=== PATIENT | female | born 1935 | race Caucasian/White ===

== ENCOUNTER 2019-02-19 15:45 | Inpatient (IN) | payer OTHER, BC ==
--- NOTE | 2019-02-19 16:09 | PDOC ---
History of Present Illness - General History Source: Family Exam Limitations: No Limitations - History of Present Illness Initial Comments: 02/19/19 17:09 The patient is a 83-year-old female, with a past medical history of HTN and alzheimer's, who presents to the ED with new onset weakness. Family is at bedside and states that the patient was sitting on the couch and attempted to stand up, but suddenly became weak. Family was able to catch the patient before she fell and she just slid down the couch. EMS was called. No LOC or head trauma. Upon examination, the patient denies any back pain, neck pain, abdominal pain, chest pain, or shortness of breath. Patient experienced 1 episode of vomiting today after drinking ensure. Denies any fevers, chills. Denies any urinary symptoms. <Miladis Armstrong - Last Filed: 02/19/19 17:11> - History of Present Illness Initial Comments: Daily Meds: Lisinopril 5 mg- qd Baby aspirin- qd Omeprazole 20mg- qd Metoprolol succinate 25mg- qd 02/19/19 17:54 <Tamia Blanchard - Last Filed: 02/19/19 19:15> <Kathy Hale - Last Filed: 02/19/19 20:15> - General Chief Complaint: Injury Stated Complaint: FALL Time Seen by Provider: 02/19/19 16:06 Past History <Miladis Armstrong - Last Filed: 02/19/19 17:11> <Tamia Blanchard - Last Filed: 02/19/19 19:15> - Past Medical History Cardiac Disorders: Yes COPD: No GI Disorders: Yes - Suicide/Smoking/Psychosocial Hx Smoking History: Never smoked Information on smoking cessation initiated: No Hx Alcohol Use: No Drug/Substance Use Hx: No <Kathy Hale - Last Filed: 02/19/19 20:15> - Past Medical History Allergies/Adverse Reactions: Allergies Allergy/AdvReac Type Severity Reaction Status Date / Time No Known Allergies Allergy Verified 02/19/19 15:56 Home Medications: Ambulatory Orders Unobtainable 02/19/19 Review of Systems - Review of Systems Able to Perform ROS?: Yes Comments:: 02/19/19 17:17 GENERAL/CONSTITUTIONAL: (+)Generalized weakness. No fever or chills. HEAD, EYES, EARS, NOSE AND THROAT: No change in vision. No ear pain or discharge. No sore throat. CARDIOVASCULAR: No chest pain or shortness of breath. RESPIRATORY: No cough, wheezing, or hemoptysis. GASTROINTESTINAL: No nausea, vomiting, diarrhea or constipation. GENITOURINARY: No dysuria, frequency, or change in urination. MUSCULOSKELETAL: No joint or muscle swelling or pain. No neck or back pain. SKIN: No rash NEUROLOGIC: No headache, vertigo, loss of consciousness, or change in strength/ sensation. ENDOCRINE: No increased thirst. No abnormal weight change. HEMATOLOGIC/LYMPHATIC: No anemia, easy bleeding, or history of blood clots. ALLERGIC/IMMUNOLOGIC: No hives or skin allergy. <Miladis Armstrong - Last Filed: 02/19/19 17:11> *Physical Exam - Vital Signs Last Vital Signs Temp Pulse Resp BP Pulse Ox 97.5 F L 112 H 17 148/72 94 L 02/19/19 15:54 02/19/19 15:54 02/19/19 15:54 02/19/19 15:54 02/19/19 15:54 - Physical Exam Comments: 02/19/19 17:17 GENERAL: Awake, alert, and fully oriented, in no acute distress HEAD: No signs of trauma EYES: PERRLA, EOMI, sclera anicteric, conjunctiva clear ENT: Auricles normal inspection, hearing grossly normal, nares patent, oropharynx clear without exudates. Moist mucosa NECK: Normal ROM, supple, no lymphadenopathy, JVD, or masses LUNGS: (+)Wheezing B/L, crackles heard on the right. HEART: Regular rate and rhythm, normal S1 and S2, no murmurs, rubs or gallops ABDOMEN: Soft, nontender, normoactive bowel sounds. No guarding, no rebound. No masses MSK: No C, T, or L-spine tenderness. EXTREMITIES: (+)B/L LE venous stasis changes. Radial and pedal pulses intact. No external deformities. Normal range of motion, no edema. No clubbing or cyanosis. No cords, erythema, or tenderness NEUROLOGICAL: Cranial nerves II through XII grossly intact. Normal speech. SKIN: Warm, Dry, normal turgor, no rashes or lesions noted <Miladis Armstrong - Last Filed: 02/19/19 17:11> - Vital Signs Last Vital Signs Temp Pulse Resp BP Pulse Ox 97.5 F L 112 H 17 148/72 94 L 02/19/19 15:54 02/19/19 15:54 02/19/19 15:54 02/19/19 15:54 02/19/19 15:54 <Tamia Blanchard - Last Filed: 02/19/19 19:15> - Vital Signs Last Vital Signs Temp Pulse Resp BP Pulse Ox 97.5 F L 112 H 17 148/72 94 L 02/19/19 15:54 02/19/19 15:54 02/19/19 15:54 02/19/19 15:54 02/19/19 15:54 <Kathy Hale - Last Filed: 02/19/19 20:15> Heart Score/ECG Review - ECG Intrepretation Comment:: 02/19/19 17:33 sinus at 98, nl axis, nl interval, t wave inversions v1-2, t wave flattening I/ avl, no acute st changes <Kathy Hale - Last Filed: 02/19/19 20:15> ED Treatment Course - LABORATORY CBC & Chemistry Diagram: 02/19/19 16:45 02/19/19 16:45 <Miladis Armstrong - Last Filed: 02/19/19 17:11> - LABORATORY CBC & Chemistry Diagram: 02/19/19 16:45 02/19/19 16:45 - ADDITIONAL ORDERS Additional order review: Laboratory Results 02/19/19 02/19/19 16:45 16:45 PT with INR 18.90 H INR 1.59 H PTT (Actin FS) 39.0 H Sodium 142 Potassium 3.0 L Chloride 105 Carbon Dioxide 28 Anion Gap 9 BUN 9 Creatinine 1.0 Creat Clearance w eGFR 52.82 Random Glucose 113 H Calcium 7.5 L Magnesium 1.6 L Total Bilirubin 0.8 AST 119 H ALT 36 Alkaline Phosphatase 80 Creatine Kinase 752 H Troponin I 0.60 H Total Protein 5.9 L Albumin 2.5 L TSH 2.28 02/19/19 16:45 RBC 4.26 MCV 68.6 L MCHC 31.3 L RDW 19.1 H MPV 9.6 Neutrophils % 73.1 Lymphocytes % 16.8 Monocytes % 9.9 Eosinophils % 0.0 Basophils % 0.2 - RADIOLOGY Radiograph Interpretation: EXAM#: TYPE/EXAM: RESULT: [id number] RAD/CHEST PA LAT History of cough Impression: Moderate size hiatus hernia that was seen on prior MRI of the abdomen dated 09/06/2018. Adjacent consolidation/atelectasis is present in the left lower lobe, medially. Reported By: Viktoria Rivera MD 02/19/19 17:51 EXAM#: TYPE/EXAM: RESULT: [id number] CT/HEAD CT WITHOUT CONTRAST Headache. Impression: Moderate atrophy. Focal chronic infarct in the left basal ganglia, anteriorly extending to the left anterior periventricular white matter. Otherwise, no gross acute intracranial pathology is identified. Reported By: Viktoria Rivera MD 02/19/19 18:38 02/19/19 19:15 - Consult/PCP Time Called: 17:41 (Spoke with Dr. Pollack concerning patient's care, patient will be admitted to obs) Case discussed with personal care physician: Robbin Pollack <Tamia Blanchard - Last Filed: 02/19/19 19:15> - LABORATORY CBC & Chemistry Diagram: 02/19/19 16:45 02/19/19 16:45 <Kathy Hale - Last Filed: 02/19/19 20:15> Medical Decision Making - Medical Decision Making 02/19/19 16:45 a/p: 83yo female with a slip off the couch today, daughter lowered her to the floor. No head injury or LOC -new generalized weakness -denies all complaints, but has wheezing which is new and LE edema which is new -Dr. Robbin Pollack is PMD -ambuates with a steady gait at home and usually is not weak when getting up -odor of urine -denies cough, denies sob, denies cp -no root -denies blood thinners -no neck or back pain -pt in NAD -an episode of vomiting in the ambulance, states she had drunk an ensure just prior to getting in the ambulance and the bouncing in the back of the ambulance pt denies n/v or abd pain 02/19/19 17:37 cxr shows a density in the RML - will obtain ct chest without contrast trop 0.[address] changes on ekg t wave inversions septal leads call placed to Dr. Pollack for admission 02/19/19 18:01 daughter and pt updated meds obtained from the pharmacy 02/19/19 19:47 Bryce Genao- son, please call with updates 02/19/19 20:[address], will send blood cultures and add abx bnp elevated will give dose of lasix, given le swelling and pleural effusions <Kathy Hale - Last Filed: 02/19/19 20:15> *DC/Admit/Observation/Transfer - Attestations Scribe Attestion: 02/19/19 17:23 Documentation prepared by Miladis Armstrong, acting as caregivers non medical for Kathy Hale DO. <Miladis Armstrong - Last Filed: 02/19/19 17:11> - Attestations Scribe Attestion: Documentation prepared by FABIANO Purvis, acting as caregivers non medical for Kathy Hale DO. 02/19/19 17:43 <Tamia Blanchard - Last Filed: 02/19/19 19:15> - Discharge Dispostion Decision to Admit order: Yes - Attestations Physician Attestion: 02/19/19 17:39 I, Dr. Kathy Hale DO, attest that this document has been prepared under my direction and personally reviewed by me in its entirety. I further attest, that it accurately reflects all work, treatment, procedures and medical decision -making performed by me. <Kathy Hale - Last Filed: 02/19/19 20:15> Diagnosis at time of Disposition: Weakness, Elevated troponin, Microcytic anemia, PNA (pneumonia) - Discharge Dispostion Condition at time of disposition: Guarded
[2019-02-19 17:11] LABS: BASO % 0.2 % (0-2.0); HEMATOCRIT 29.2 % (32.4-45.2); HEMOGLOBIN 9.2 GM/dL (10.7-15.3); LYMPH % 16.8 % (8-40); MCH 21.5 pg (25.7-33.7); MCHC 31.3 g/dl (32.0-36.0); MEAN CELL VOLUME 68.6 fl (80-96); MEAN PLT VOLUME 9.6 fl (7.5-11.1); MONO % 9.9 % (3.8-10.2); NEUT % 73.1 % (42.8-82.8); PLATELET COUNT 102 K/MM3 (134-434); RBC 4.26 M/mm3 (3.60-5.2); RDW 19.1 % (11.6-15.6); WHITE BLOOD COUNT 4.4 K/mm3 (4.0-10.0)
[2019-02-19 17:16] LABS: INR 1.59 (0.83-1.09); PROTHROMBIN TIME (PATIENT) 18.9 SEC (9.7-13.0)
[2019-02-19 17:35] LABS: ALBUMIN 2.5 g/dl (3.4-5.0); ALK PHOS 80 U/L (45-117); ANION GAP 9 MMOL/L (8-16); BILIRUBIN,TOTAL 0.8 mg/dL (0.2-1); BLOOD UREA NITROGEN 9 mg/dL (7-18); CALCIUM 7.5 mg/dL (8.5-10.1); CHLORIDE 105 mmol/L (98-107); CO2 28 mmol/L (21-32); GLUCOSE,RANDOM 113 mg/dL (74-106); MAGNESIUM 1.6 mg/dL (1.8-2.4); SGOT/AST 119 U/L (15-37); SGPT/ALT 36 U/L (13-61); SODIUM 142 mmol/L (136-145); TOT PROT 5.9 g/dl (6.4-8.2)
[2019-02-19] MEDS ORDERED: POTASSIUM CHLORIDE ORAL LIQUID 20 MEQ/15 ML PO ONE (17:36)
[2019-02-19] MEDS ORDERED: MAGNESIUM SULF 50% (8.12 MEQ/2 ML-1 GM VIAL) IVPB ONE (17:36)
[2019-02-19] MEDS ORDERED: ASPIRIN 81 MG CHEWABLE TABLETS PO ONE (17:42)
[2019-02-19] MEDS ORDERED: ASPIRIN 81 MG CHEWABLE TABLETS ONE (18:21)
[2019-02-19] MEDS ORDERED: POTASSIUM CHLORIDE ORAL LIQUID 20 MEQ/15 ML ONE (18:22)
[2019-02-19] MEDS ORDERED: MAGNESIUM 1GM/D5W - 1 GM/100 ML IVPB IVPB ONE (18:22)
[2019-02-19 19:41] LABS: URINE APPEARANCE Slightly Cloudy; URINE BILIRUBIN Negative (NEGATIVE); URINE COLOR Yellow; URINE GLUCOSE (UA) Negative (NEGATIVE); URINE KETONE Negative (NEGATIVE); URINE LEUK ESTERASE 1+ (NEGATIVE); URINE NITRITE Negative (NEGATIVE); URINE PROTEIN 1+ (NEGATIVE)
[2019-02-19 19:42] LABS: ANISOCYTOSIS 1+; PLATELET ESTIMATE SLT DECREASE
[2019-02-19] MEDS ORDERED: CEFTRIAXONE 1 GM in DEXTROSE 5%-WATER - 100 ML IVPB ONE (20:10)
[2019-02-19] MEDS ORDERED: AZITHROMYCIN IVPB 500 MG in DEXTROSE 5%-WATER - 250 ML IVPB ONE (20:10)
[2019-02-19] MEDS ORDERED: FUROSEMIDE 40 MG/4 ML INJECTABLE VIAL IVPUSH ONE (20:15)
[2019-02-19] MEDS ORDERED: FUROSEMIDE 40 MG/4 ML INJECTABLE VIAL ONE (20:22)
[2019-02-19] MEDS ORDERED: CEFTRIAXONE 1 GM/50 ML BAG ONE (20:22)
[2019-02-19 20:32] LABS: URINE BACTERIA MANY /hpf (NEGATIVE)
[2019-02-19] MEDS ORDERED: PHYTONADIONE 5 MG TABLET PO ONE (20:38)
[2019-02-19] MEDS ORDERED: FUROSEMIDE 40 MG TABLET (FP) PO ONE (20:38)
[2019-02-19] MEDS ORDERED: KCL 10 MEQ IVPB 10 MEQ/100 ML INFUS.BAG IVPB SCH (20:45)
[2019-02-19] MEDS ORDERED: NITROGLYCERIN SUBLINGUAL 1/150 0.4 MG TAB SL PRN (20:50)
[2019-02-20] MEDS: HEPARIN NA (PORCINE) 5,000 UNITS/ML 1ML VIAL SQ SCH ×2 (01:13→05:41)
[2019-02-20 04:41] VITALS: BMI 22.9
[2019-02-20 06:50] LABS: HEMATOCRIT 24.9 % (32.4-45.2); HEMOGLOBIN 7.7 GM/dL (10.7-15.3); MCH 20.8 pg (25.7-33.7); MCHC 30.8 g/dl (32.0-36.0); MEAN CELL VOLUME 67.5 fl (80-96); MEAN PLT VOLUME 9.3 fl (7.5-11.1); PLATELET COUNT 82 K/MM3 (134-434); RBC 3.68 M/mm3 (3.60-5.2); RDW 18.8 % (11.6-15.6); WHITE BLOOD COUNT 3.7 K/mm3 (4.0-10.0)
[2019-02-20 06:58] LABS: INR 1.61 (0.83-1.09); PROTHROMBIN TIME (PATIENT) 19.1 SEC (9.7-13.0)
[2019-02-20 07:39] LABS: ALK PHOS 62 U/L (45-117); ANION GAP 7 MMOL/L (8-16); BILIRUBIN,TOTAL 0.8 mg/dL (0.2-1); BLOOD UREA NITROGEN 9 mg/dL (7-18); CHLORIDE 103 mmol/L (98-107); CO2 32 mmol/L (21-32); CREATININE 0.9 mg/dL (0.55-1.3); GLUCOSE,RANDOM 75 mg/dL (74-106); MAGNESIUM 1.4 mg/dL (1.8-2.4); SGOT/AST 96 U/L (15-37); SGPT/ALT 31 U/L (13-61); SODIUM 142 mmol/L (136-145); TOT PROT 4.8 g/dl (6.4-8.2)
[2019-02-20 07:54] LABS: CALCIUM 6.8 mg/dL (8.5-10.1); POTASSIUM 2.7 mmol/L (3.5-5.1)
[2019-02-20] MEDS ORDERED: PHYTONADIONE 5 MG TABLET PO ONE (08:50)
[2019-02-20] MEDS ORDERED: LISINOPRIL 5 MG TABLET (FP) PO SCH (10:00)
[2019-02-20] MEDS ORDERED: KETOCONAZOLE 2% CREAM - 60GM TUBE TP SCH (10:00)
[2019-02-20] MEDS ORDERED: ASPIRIN COATED 81 MG TABLET.EC PO SCH (10:00)
[2019-02-20] MEDS ORDERED: PT OWN MED DRAWER 7, Y5N ONE (10:03)
--- NOTE | 2019-02-20 10:08 | CONSULT ---
Admitting History and Physical - Primary Care Physician PCP: Robbin Pollack - Admission History of Present Illness: The patient is a 83-year-old female, with a past medical history of HTN and alzheimer's, who presents to the ED with new onset weakness. Pt had an episode of vomiting in the ambulance. She reported having an ensure just prior to getting in the ambulance and the bouncing in the back of the ambulance History Source: Medical Record Limitations to Obtaining History: Clinical Condition, Dementia - Smoking History Smoking history: Never smoked - Alcohol/Substance Use Hx Alcohol Use: No History - Admission Reason For Visit: ELAVATED TROPONIN LEVEL,MICROCYTIC ANEMIA,WEAKNESS - Diagnostics X-ray: Report Reviewed (Moderate size hiatus hernia that was seen on prior MRI of the abdomen dated 09/06/2018. Adjacent consolidation/atelectasis is present in the left lower lobe, medially) CT Scan: Report Reviewed (Moderate atrophy. Focal chronic infarct in the left basal ganglia, anteriorly extending to the left anterior periventricular white matter. Otherwise, no gross acute intracranial pathology is identified.) - General Mental Status: Awake and Alert, Able to Follow Commands, Forgetful, Vague, Confused Attention: Intact Ability to Follow Directions: Good Head/Neck Control: Fair - Hearing Hearing: Normal Hearing Aide: No Speech Evaluation - Communication Primary Language: [place] Communication: Yes: Simple Responses - Speech Production Able to Make Needs Known: Yes: WNL Intelligibility: Yes: WNL - Speech Characteristics Voice Loudness: Normal Voice Pitch: Yes: Normal Voice Phonatory-based Quality: Yes: Normal Speech Pattern: Normal Speech Clarity: < 100% Nasal Resonance: Normal Articulation: Yes: Precise - Language/Auditory Comprehension Follows: Yes: 1 Stage Simple Commands Observation: Able to respond to yes/no queries: Yes, Yes/No Confusion: No, Comprehends Conversational Speech: Yes, Benefits from Slow Speech: Yes, Benefits from Repetiton: Yes - Language/Verbal Expression Able to Respond to Simple Queries: Yes: WNL, Mildly Impaired Able to Communicate Wants and Needs: Yes: WNL Functional Communication Status: Yes: WNL - Swallow Evaluation/Bedside Assessment Current Nutritional Intake: Regular, Thin Liquids Oral Secretions: Yes: WFL Dentition: Yes: Dental Appliance Upper (loose,ill fitting), Dental Appliance Lower (non functional) Facial Symmetry at Rest: Symmetrical Facial Symmetry on Retraction: Symmetrical Facial Movement: Controlled Against Resistance Opening: Normal Against Resistance Closing: Normal Pucker Lips: Normal Smile: Normal Lingual Movement: Normal, Symmetric Lingual Speed of Movement: Normal Lingual Movement Strgth Against Opposition: Normal Lingual Movement Characteristics: Normal Velopharyngeal Movement: Normal Laryngeal Elevation: WFL Laryngeal Movement: Able to Palpate Rate of Intake: WFL Bolus Size: WFL Labial Seal: WFL Chewing: Impaired Oral Prep Time: Increased A-P Transit: WFL Timing of Swallow: Delayed Coughing/Throat Clear: No Change in Voice: No Recommendations - Speech Evaluation, Impression/Plan Impression: Pt seen bedside, hesitant but verbal, disoriented x 3, reports needing to "cut up small or it gets stuck.". Upper dentures are loose. Lower dentures in a cup are non functional with hooks to attach to teeth that no longer exist in her mouth. - Disposition Discharge to: To be Determined - Dysphagia Impressions/Plan Swallowing Skills: Impaired (Impaired mastication/HH) Dysphagia Treatment Plan: Elevate HOB during feed (during and after meals x 1 hours. Avoid PO intake within 2-3 hours of bedtime) - Recommendations Diet Consistency: Other (Chopped, moist,soft, easy to chew) Medication Administration: Crushed with applesauce Liquids: Thin Liquids Supplement: Ensure, Magic Cup
[2019-02-20] MEDS: metoPROLOL SUCCINATE 25 MG TAB.SR.24H (FP) PO SCH (10:20)
[2019-02-20] MEDS: KCL 10 MEQ IVPB 10 MEQ/100 ML INFUS.BAG IVPB SCH ×2 (10:20→11:20)
[2019-02-20] MEDS: PANTOPRAZOLE 40 MG TABLET (FP) PO SCH (10:20)
[2019-02-20] MEDS: LISINOPRIL 5 MG TABLET (FP) PO SCH (10:20)
--- NOTE | 2019-02-20 10:22 | EKG ---
Test Reason : Blood Pressure : / mmHG Vent. Rate : 087 BPM Atrial Rate : 087 BPM P-R Int : 150 ms QRS Dur : 068 ms QT Int : 390 ms P-R-T Axes : 081 -48 095 degrees QTc Int : 469 ms SINUS RHYTHM WITH PREMATURE SUPRAVENTRICULAR COMPLEXES AND WITH OCCASIONAL PREMATURE VENTRICULAR COMPLEXES LEFT AXIS DEVIATION NONSPECIFIC T WAVE ABNORMALITY ABNORMAL ECG NO PREVIOUS ECGS AVAILABLE Confirmed by FABIOLA REDMAN, AIDAN ([id number]) on 02/20/2019 10:22:15 AM Referred By: Confirmed By:AIDAN HICKS MD
--- NOTE | 2019-02-20 10:25 | EKG ---
Test Reason : Blood Pressure : / mmHG Vent. Rate : 098 BPM Atrial Rate : 098 BPM P-R Int : 154 ms QRS Dur : 070 ms QT Int : 376 ms P-R-T Axes : 073 -25 091 degrees QTc Int : 480 ms NORMAL SINUS RHYTHM NONSPECIFIC T WAVE ABNORMALITY PROLONGED QT ABNORMAL ECG NO PREVIOUS ECGS AVAILABLE Confirmed by AIDAN HICKS MD ([id number]) on 02/20/2019 10:24:41 AM Referred By: Confirmed By:AIDAN HICKS MD
--- NOTE | 2019-02-20 12:18 | CONSULT ---
Consult - text type - Consultation Consultation Note: NEUROLOGY CONSULT APPRECIATED: This 83 yo F lives alone with assistance of her daughters. Daughter Lana at bedside. PMHX includes HTN, GERD, "Alzheimer's," maintained on lisinopril, ASA, omeprazole, metoprolol ER 25mg. Ambulates independently at home. Admitted after sliding on her bottom while attempting to stand from couch and lowered by her daughter to floor without reported ZAFAR/LOC. Pt is vague historian unable to recount events. Noted with low H/H, requiring transfusion today. Per daughter, pt is continent of B/B without previous hx of falls. Head CT (reviewed): moderate atrophy with ventricular dilation. chronic periventricular ischemic changes. Chronic L basal ganglia CVA with encephalomalacia. WBC 3.7 H/H 7.7./24.9 MCV 67.5 platelet 82; B12> 1000 pg% UA WBC= 10-20- now on amoxicillin TSH 2.28 FLAKO: T 99.6. Cor regular. No bruit. Neck supple. S/P mid-sternotomy scar. Wheezing. No evidence of head trauma. NEURO: Awake, alert, difficulty following 2 step commands. Oriented to self. Ox "vaughn," "[place]." CNII-CNXII: EOM intact with full covarrubias appreciated. No facial. + glabella, snout, grasps Motor: Min R drift. Strength normal. Decreased GANESH's. Reflexes symmetric. Toes downgoing. Coordination: No FTN dystaxia. Sensation: Feels pinch in all 4's Gait: Shortened strides, retropulsive. Impression: Moderately severe B/L cerebral dysfunction (OMS, chronic) mosyt likely Alzheimer's Disease (AD). Accentuation of L cerebral dysfunction (Chronic L basal ganglia lacunae) Gait ataxia with contributions from above, anemia, orthostatic changes All worsened byToxic-Metabolic Encephalopathy (UTI +/- PNA?) Suggest: Hydration and antibiotics as indicated Orthostatic BP's Agree with Cardiology and telemetry Await carotid duplex Start donepezil 5 mg PO qd Monitor H/H and underlying cause of pancytopenia PT eval for gait safety with walker teles[employer] representative referral for HHS and home safety Thank you very much, Jose El MD
--- NOTE | 2019-02-20 13:00 | ECHO ---
Name: WARRENZARINA Exam:Adult Echocardiogram Study Date: 02/20/2019 09:34 AM Age: 83 yrs Reason For Study: ELEVATED BNP Height: 60 in Weight: 110 lb BSA: 1.4 m2 MMode/2D Measurements & Calculations IVSd: 0.82 cm Ao root diam: 2.8 cm LVIDd: 3.5 cm LA dimension: 1.9 cm LVIDs: 2.4 cm LVPWd: 0.88 cm LVPWs: 1.9 cm EDV(Suleimanich): 50.6 ml ESV(Teich): 19.3 ml LAV (MOD-bp): 68.0 ml Doppler Measurements & Calculations MV E max abraham: 79.0 cm/sec Ao V2 max: 143.5 cm/sec MV A max abrahma: 108.1 cm/sec Ao max P.2 mmHg MV E/A: 0.73 Ao V2 mean: 99.5 cm/sec MV dec time: 0.21 sec Ao mean P.6 mmHg Ao V2 VTI: 29.3 cm LV V1 max P.6 mmHg MR max abraham: 508.7 cm/sec LV V1 mean P.4 mmHg MR max P.5 mmHg LV V1 max: 80.0 cm/sec LV V1 mean: 54.8 cm/sec LV V1 VTI: 15.0 cm TR max abraham: 203.3 cm/sec PA V2 max: 98.7 cm/sec TR max P.5 mmHg PA max P.9 mmHg Med Peak E' Abraham: 6.3 cm/sec Med E/e': 12.6 Lat Peak E' Abraham: 8.0 cm/sec Lat E/e': 9.9 Procedure A two-dimensional transthoracic echocardiogram with color flow and Doppler was performed. Left Ventricle The left ventricular size, thickness and function are normal. The left ventricular ejection fraction is normal. E/A reversal consistent with but not diagnostic of poor LV compliance. The left ventricular w all motion is normal. Right Ventricle The right ventricle is normal in size and function. Atria Normal left and right atrial size and function. Mitral Valve There is mild mitral valve thickening. There is no mitral valve stenosis. There is moderate to severe mitral regurgitation. Tricuspid Valve There is mild tricuspid valve thickening. There is no tricuspid stenosis. There was insufficient TR d etected to calculate RV systolic pressure. Aortic Valve The aortic valve is normal in structure and function. No hemodynamically significant valvular aortic stenosis. No aortic regurgitation is present. Pulmonic Valve The pulmonic valve is not well visualized. There is no pulmonic valvular stenosis. Mild pulmonic valv ular regurgitation. Great Vessels The aortic root is normal size. Pericardium/Pleura There is no pericardial effusion. Interpretation Summary The left ventricular size, thickness and function are normal The left ventricular ejection fraction is normal. The left ventricular wall motion is normal. There was insufficient TR detected to calculate RV systolic pressure. E/A reversal consistent with but not diagnostic of poor LV compliance There is moderate to severe mitral regurgitation. MD Marcel Olmedo 02/20/2019 12:59 PM
--- NOTE | 2019-02-20 13:57 | HP ---
Admitting History and Physical - Admission Chief Complaint: slipped off cuach stated legs ? weak. 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 ...: No Psych: Yes: Other (oms) - Smoking History Smoking history: Never smoked - Alcohol/Substance Use Hx Alcohol Use: No Home Medications - Allergies Allergies/Adverse Reactions: Allergies Allergy/AdvReac Type Severity Reaction Status Date / Time No Known Allergies Allergy Verified 02/19/19 15:56 - Home Medications Home Medications: Ambulatory Orders Unobtainable 02/19/19 Family Disease History - Family Disease History Family History: Unremarkable Review of Systems - Review of Systems Constitutional: reports: No Symptoms Eyes: reports: No Symptoms HENT: reports: No Symptoms Neck: reports: No Symptoms Cardiovascular: reports: No Symptoms Respiratory: reports: No Symptoms Gastrointestinal: reports: No Symptoms Genitourinary: reports: No Symptoms Breasts: reports: No Symptoms Reported Musculoskeletal: reports: No Symptoms Integumentary: reports: No Symptoms Neurological: reports: Confusion Endocrine: reports: No Symptoms Hematology/Lymphatic: reports: No Symptoms Psychiatric: reports: No Symptoms Physical Examination Vital Signs: Vital Signs Temperature 97.9 F 02/20/19 05:54 Pulse Rate 92 H 02/20/19 05:54 Respiratory Rate 20 02/20/19 05:54 Blood Pressure 115/61 02/20/19 05:54 O2 Sat by Pulse Oximetry (%) 96 02/19/19 22:20 Labs: CBC, BMP 02/20/19 05:30 02/20/19 05:30 Assessment/Plan copleat activity leader w/u card to see pt cont tx as is will send to [facility] [place] when ok
[2019-02-20] MEDS ORDERED: MAGNESIUM SULF 50% (8.12 MEQ/2 ML-1 GM VIAL) IVPB ONE (14:15)
--- NOTE | 2019-02-20 14:18 | CON.CARD ---
Consult Consult Specialty:: Cardiology Referred by:: Robbin Pollack Reason for Consultation:: NSTEMI - History of Present Illness Chief Complaint: Fall History of Present Illness: 83 year old female with a pmhx of htn, alzheimer's, and CAD s/p CABG in 2016 at [facility] who presents to the ER with weakness. While at home patient was sitting on couch and when attempted to get up she was weak and slid down the couch. No LOC or trauma. Denies any chest pain or sob. No pnd, orthopnea, or palpitations. Did have one episode of vomiting Noted to have a drop in h/h, hypokalemia, and positive cardiac enzymes. EKG: sinus rhythm with nonspecific T wave abnormalities, pvc Echocardiogram with normal LVEF and mod to severe MR - History Source History Provided By: Patient, Family Member, Medical Record - Past Medical History DRAMA TEACHER: Yes: Dementia Cardio/Vascular: Yes: CAD ...: No Psych: Yes: Other (oms) - Past Surgical History Past Surgical History: Yes: CABG - Alcohol/Substance Use Hx Alcohol Use: No - Smoking History Smoking history: Never smoked Home Medications - Allergies Allergies/Adverse Reactions: Allergies Allergy/AdvReac Type Severity Reaction Status Date / Time No Known Allergies Allergy Verified 02/19/19 15:56 - Home Medications Home Medications: Ambulatory Orders Unobtainable 02/19/19 Vital Signs: Vital Signs Temperature 97.9 F 02/20/19 05:54 Pulse Rate 92 H 02/20/19 05:54 Respiratory Rate 20 02/20/19 05:54 Blood Pressure 115/61 02/20/19 05:54 O2 Sat by Pulse Oximetry (%) 96 02/19/19 22:20 Constitutional: Yes: No Distress Neck: Yes: Supple Respiratory: Yes: Rales Gastrointestinal: Yes: Soft Cardiovascular: Yes: Regular Rate and Rhythm JVD: No Carotid Bruit: No PMI: Non-Displaced Heart Sounds: Yes: S1, S2 Murmur: Yes: Systolic Murmur, Grade 3 (apex) Edema: LLE: Trace, RLE: Trace - Other Data Labs, Other Data: CBC, BMP 02/20/19 05:30 02/20/19 05:30 INR, PTT INR 1.61 (0.83-1.09) H 02/20/19 05:30 Troponin, BNP 02/19/19 02/20/19 02/20/19 16:45 01:00 05:30 Troponin I 0.60 H 0.60 H 0.51 H B-Natriuretic Peptide 88282.0 H Troponin, BNP 02/19/19 02/20/19 02/20/19 16:45 01:00 05:30 Troponin I 0.60 H 0.60 H 0.51 H B-Natriuretic Peptide 01563.0 H Imaging - Results Chest X-ray: Report Reviewed EKG: Image Reviewed Assessment/Plan 83 year old female with a pmhx of htn, alzheimer's, and CAD s/p CABG in 2016 at [facility] who presents to the ER with weakness. While at home patient was sitting on couch and when attempted to get up she was weak and slid down the couch. No LOC or trauma. Denies any chest pain or sob. No pnd, orthopnea, or palpitations. Did have one episode of vomiting Noted to have a drop in h/h, hypokalemia, and positive cardiac enzymes. EKG: sinus rhythm with nonspecific T wave abnormalities, pvc Echocardiogram with normal LVEF and mod to severe MR 1) CAD/NSTEMI -Patient with elevated cardiac enzymes in setting of drop in H/h. No cardiac symptoms. No acute ekg ischemic changes. Echocardiogram with normal LVEF. Cardiac enzymes likely due to demand ischemia in a patient with known coronary disease and cabg. -No further cardiac intervention/testing. Transfuse as needed. Given elevated bnp and mod-severe MR would monitor to see if needs diuretic after transfusions. -Treat hypokalemia. Aspirin is on hold given degree of anemia/drop in h/h. longterm if deemed safe would restart aspirin 81mg daily but given drop in h/h continue to hold it. Bblocker if tolerates from bp perspective. Will sign off at this time. If no events on tele by Saturday can DC tele
--- NOTE | 2019-02-20 15:39 | CON.ID ---
Consult Consult Specialty:: infectious diseases Referred by:: Reason for Consultation:: h/o of fall,ankle injury,anemia - History of Present Illness Chief Complaint: fall History of Present Illness: 83 yo F lives alone with assistance of her daughters. Daughter at bedside. PMHX includes HTN, GERD, "Alzheimer's," Ambulates independently at home. Admitted after sliding on her bottom while attempting to stand from couch and lowered by her daughter to floor without reported ZAFAR/LOC. Pt is vague historian unable to recount events. Noted with low H/H, requiring transfusion today. Per daughter, pt is continent of B/B without previous hx of falls. patient looks good receiving transfusion but pleasantly confused - History Source History Provided By: Family Member Limitations to Obtaining History: Clinical Condition - Past Medical History CORRESPONDENCE CLERK: Yes: Dementia Cardio/Vascular: Yes: CAD ...: No Psych: Yes: Other (oms) - Past Surgical History Past Surgical History: Yes: CABG - Alcohol/Substance Use Hx Alcohol Use: No - Smoking History Smoking history: Never smoked Home Medications - Allergies Allergies/Adverse Reactions: Allergies Allergy/AdvReac Type Severity Reaction Status Date / Time No Known Allergies Allergy Verified 02/19/19 15:56 - Home Medications Home Medications: Ambulatory Orders Unobtainable 02/19/19 Review of Systems - Review of Systems Constitutional: reports: No Symptoms Eyes: reports: No Symptoms HENT: reports: No Symptoms Neck: reports: No Symptoms Cardiovascular: reports: No Symptoms Respiratory: reports: No Symptoms Gastrointestinal: reports: No Symptoms Genitourinary: reports: No Symptoms Musculoskeletal: reports: No Symptoms Integumentary: reports: No Symptoms Neurological: reports: No Symptoms Endocrine: reports: No Symptoms Hematology/Lymphatic: reports: No Symptoms Psychiatric: reports: No Symptoms Physical Exam Vital Signs: Vital Signs Temperature 97.9 F 02/20/19 05:54 Pulse Rate 92 H 02/20/19 05:54 Respiratory Rate 20 02/20/19 05:54 Blood Pressure 115/61 02/20/19 05:54 O2 Sat by Pulse Oximetry (%) 96 02/19/19 22:20 Constitutional: Yes: Well Nourished, No Distress, Calm Eyes: Yes: Conjunctiva Clear HENT: Yes: Atraumatic Neck: Yes: Supple, Trachea Midline Cardiovascular: Yes: Regular Rate and Rhythm Respiratory: Yes: Regular, CTA Bilaterally Gastrointestinal: Yes: Normal Bowel Sounds, Soft Musculoskeletal: Yes: WNL Extremities: Yes: Other (sprain of the ankle) Neurological: Yes: Alert, Other (dementia) Psychiatric: Yes: Other (cooperative) Labs: CBC, BMP 02/20/19 05:30 02/20/19 05:30 Imaging - Results Chest X-ray: Report Reviewed, Image Reviewed Cat Scan: Report Reviewed, Image Reviewed Assessment/Plan 83 year old female with a pmhx of htn, alzheimer's, and CAD s/p CABG in 2016 at [facility] who presents to the ER with weakness. While at home patient was sitting on couch and when attempted to get up she was weak and slid down the couch imaging studies shows that there is a possibility of pneumonia r/o pneumonia anemia sprain of the leg weakness alzimers plan will hold of on starting abx will see how patient does if any changes will start abx transfusion rest as per the team
[2019-02-20] MEDS: AMOXICILLIN 250 MG CAPSULE PO SCH ×2 (15:56→22:12)
[2019-02-20] MEDS ORDERED: MAGNESIUM SULF 50% (8.12 MEQ/2 ML-1 GM VIAL) ONE (19:14)
[2019-02-21] MEDS: AMOXICILLIN 250 MG CAPSULE PO SCH ×2 (07:01→07:33)
[2019-02-21 08:12] LABS: BASO % 0.4 % (0-2.0); EOS % 0.1 % (0-4.5); HEMATOCRIT 29.3 % (32.4-45.2); HEMOGLOBIN 9.4 GM/dL (10.7-15.3); LYMPH % 42.5 % (8-40); MCH 22.3 pg (25.7-33.7); MCHC 32.1 g/dl (32.0-36.0); MEAN CELL VOLUME 69.6 fl (80-96); MEAN PLT VOLUME 9.7 fl (7.5-11.1); MONO % 9.7 % (3.8-10.2); NEUT % 47.3 % (42.8-82.8); PLATELET COUNT 65 K/MM3 (134-434); RBC 4.21 M/mm3 (3.60-5.2); RDW 20.6 % (11.6-15.6); WHITE BLOOD COUNT 2.6 K/mm3 (4.0-10.0)
[2019-02-21 08:49] LABS: ANION GAP 7 MMOL/L (8-16); BLOOD UREA NITROGEN 9 mg/dL (7-18); CHLORIDE 102 mmol/L (98-107); CO2 30 mmol/L (21-32); CREATININE 0.7 mg/dL (0.55-1.3); GLUCOSE,RANDOM 71 mg/dL (74-106); SODIUM 140 mmol/L (136-145)
[2019-02-21] MEDS ORDERED: POTASSIUM CHLORIDE ORAL LIQUID 20 MEQ/15 ML PO ONE (09:50)
[2019-02-21 10:49] LABS: MAGNESIUM 1.8 mg/dL (1.8-2.4)
[2019-02-21] MEDS: KETOCONOZOLE 2% TOPICAL CREAM 15 GM TUBE TP SCH (11:30)
--- NOTE | 2019-02-21 12:08 | PN ---
Progress Note, Physician History of Present Illness: no change in startus vss neuro intact tni sable - Current Medication List Current Medications: Active Medications Amoxicillin (Amoxicillin -) 250 mg PO TID [facility] Last Admin: 02/21/19 07:33 Dose: 250 mg Donepezil HCl (Aricept -) 5 mg PO DAILY [facility] Ketoconazole (Nizoral 2% Cream -) 1 applic TP DAILY [facility] Lisinopril (Prinivil) 5 mg PO DAILY [facility] Last Admin: 02/20/19 10:20 Dose: 5 mg Metoprolol Succinate (Toprol Xl -) 25 mg PO DAILY [facility] Last Admin: 02/20/19 10:20 Dose: 25 mg Nitroglycerin (Nitrostat -) 0.4 mg SL Q5M PRN PRN Reason: FOR CHEST PAIN Pantoprazole Sodium (Protonix -) 40 mg PO DAILY [facility] Last Admin: 02/20/19 10:20 Dose: 40 mg - Objective Vital Signs: Vital Signs Temperature 99.5 F 02/21/19 07:01 Pulse Rate 63 02/21/19 07:01 Respiratory Rate 18 02/21/19 02:00 Blood Pressure 126/50 L 02/21/19 06:51 O2 Sat by Pulse Oximetry (%) 97 02/20/19 21:00 Constitutional: Yes: Well Nourished Eyes: Yes: WNL HENT: Yes: WNL Neck: Yes: WNL Cardiovascular: Yes: WNL Respiratory: Yes: WNL Gastrointestinal: Yes: WNL Breast(s): Yes: WNL Musculoskeletal: Yes: WNL Extremities: Yes: WNL Edema: No Peripheral Pulses WNL: Yes Integumentary: Yes: WNL Neurological: Yes: Confusion ...Motor Strength: WNL Psychiatric: Yes: Other (oms) Labs: CBC, BMP 02/21/19 06:40 02/21/19 06:40 INR, PTT INR 1.61 (0.83-1.09) H 02/20/19 05:30 Assessment/Plan p/t tx d/c to [facility] saturday chk cbc in am case shannon
[2019-02-21] MEDS: metoPROLOL SUCCINATE 25 MG TAB.SR.24H (FP) PO SCH (12:11)
[2019-02-21] MEDS: DONEPEZIL HCL 5 MG TABLET (FP) PO SCH (12:11)
[2019-02-21] MEDS: PANTOPRAZOLE 40 MG TABLET (FP) PO SCH (12:11)
[2019-02-21] MEDS: LISINOPRIL 5 MG TABLET (FP) PO SCH (12:11)
[2019-02-21] MEDS ORDERED: PT OWN MED DRAWER 7, Y5N ONE (17:26)
[2019-02-21] MEDS: AMOX TR/POT CLAV 500MG/125MG TABLETS (FP) PO SCH (17:33)
--- NOTE | 2019-02-21 18:02 | PN ---
Progress Note, Physician History of Present Illness: Pt seen and examined. Events noted, chart reviewed. She is sitting up eating. Denies SOB, abd pain/n/v/d. Temp 99.5F in a.m. - Current Medication List Current Medications: Active Medications Amoxicillin/Clavulanate Potassium (Augmentin - 500mg Tablet) 1 tab PO BID@0800, 1730 [facility] Stop: 02/26/19 08:01 Last Admin: 02/21/19 17:33 Dose: 1 tab Donepezil HCl (Aricept -) 5 mg PO DAILY [facility] Last Admin: 02/21/19 12:11 Dose: 5 mg Ketoconazole (Nizoral 2% Cream -) 1 applic TP DAILY [facility] Last Admin: 02/21/19 11:30 Dose: Not Given Lisinopril (Prinivil) 5 mg PO DAILY [facility] Last Admin: 02/21/19 12:11 Dose: 5 mg Metoprolol Succinate (Toprol Xl -) 25 mg PO DAILY [facility] Last Admin: 02/21/19 12:11 Dose: 25 mg Nitroglycerin (Nitrostat -) 0.4 mg SL Q5M PRN PRN Reason: FOR CHEST PAIN Pantoprazole Sodium (Protonix -) 40 mg PO DAILY [facility] Last Admin: 02/21/19 12:11 Dose: 40 mg - Objective Vital Signs: Vital Signs Temperature 98.4 F 02/21/19 14:15 Pulse Rate 76 02/21/19 14:15 Respiratory Rate 16 02/21/19 14:15 Blood Pressure 124/68 02/21/19 14:15 O2 Sat by Pulse Oximetry (%) 97 02/21/19 09:00 Constitutional: Yes: No Distress, Calm Eyes: Yes: Conjunctiva Clear Neck: Yes: Supple Cardiovascular: Yes: Regular Rate and Rhythm Respiratory: Yes: CTA Bilaterally Gastrointestinal: Yes: Normal Bowel Sounds, Soft Genitourinary: Yes: WNL Integumentary: Yes: WNL Neurological: Yes: Alert Labs: CBC, BMP 02/21/19 06:40 02/21/19 06:40 INR, PTT INR 1.61 (0.83-1.09) H 02/20/19 05:30 Microbiology 02/19/19 19:00 Urine - Urine Clean Catch Urine Culture - Preliminary Lactose Fermenting Neg Bacilli 02/19/19 20:50 Blood - Peripheral Venous Blood Culture - Preliminary NO GROWTH OBTAINED AFTER 24 HOURS, INCUBATION TO CONTINUE FOR 4 DAYS. 02/19/19 20:52 Blood - Peripheral Venous Blood Culture - Preliminary NO GROWTH OBTAINED AFTER 24 HOURS, INCUBATION TO CONTINUE FOR 4 DAYS. - ....Imaging Chest X-ray: Report Reviewed Assessment/Plan UTI Anemia DM CAD dementia -- was started on Augmentin, watch temperatures closely -- f/u urine culture results, may need broader coverage -- blood cultures neg --continue monitor, pt currently appears stable
[2019-02-22 07:32] LABS: BASO % 0.4 % (0-2.0); EOS % 0.4 % (0-4.5); HEMATOCRIT 29.1 % (32.4-45.2); HEMOGLOBIN 9.2 GM/dL (10.7-15.3); MCH 22.5 pg (25.7-33.7); MCHC 31.7 g/dl (32.0-36.0); MEAN PLT VOLUME 10.1 fl (7.5-11.1); MONO % 9.4 % (3.8-10.2); NEUT % 36.8 % (42.8-82.8); PLATELET COUNT 61 K/MM3 (134-434); RDW 20.5 % (11.6-15.6); WHITE BLOOD COUNT 2.6 K/mm3 (4.0-10.0)
[2019-02-22 09:08] LABS: ALBUMIN 1.9 g/dl (3.4-5.0); ALK PHOS 56 U/L (45-117); ANION GAP 5 MMOL/L (8-16); BLOOD UREA NITROGEN 10 mg/dL (7-18); CHLORIDE 105 mmol/L (98-107); CO2 32 mmol/L (21-32); CREATININE 0.8 mg/dL (0.55-1.3); GLUCOSE,RANDOM 74 mg/dL (74-106); POTASSIUM 3.1 mmol/L (3.5-5.1); SGOT/AST 96 U/L (15-37); SGPT/ALT 35 U/L (13-61); SODIUM 142 mmol/L (136-145); TOT PROT 4.6 g/dl (6.4-8.2)
[2019-02-22] MEDS: AMOX TR/POT CLAV 500MG/125MG TABLETS (FP) PO SCH ×2 (10:23→17:37)
[2019-02-22] MEDS: PANTOPRAZOLE 40 MG TABLET (FP) PO SCH (10:24)
[2019-02-22] MEDS: metoPROLOL SUCCINATE 25 MG TAB.SR.24H (FP) PO SCH (10:24)
[2019-02-22] MEDS: DONEPEZIL HCL 5 MG TABLET (FP) PO SCH (10:24)
[2019-02-22] MEDS: LISINOPRIL 5 MG TABLET (FP) PO SCH (10:24)
[2019-02-22] MEDS: KETOCONOZOLE 2% TOPICAL CREAM 15 GM TUBE TP SCH (11:48)
--- NOTE | 2019-02-22 14:19 | PN ---
Progress Note, Physician History of Present Illness: Pt alert and fully responsive, no acute distress. Temp 99.0 overnight, currently afebrile. Has no complaints. - Current Medication List Current Medications: Active Medications Amoxicillin/Clavulanate Potassium (Augmentin - 500mg Tablet) 1 tab PO BID@0800, 1730 [facility] Stop: 02/26/19 08:01 Last Admin: 02/22/19 10:23 Dose: 1 tab Donepezil HCl (Aricept -) 5 mg PO DAILY [facility] Last Admin: 02/22/19 10:24 Dose: 5 mg Ketoconazole (Nizoral 2% Cream -) 1 applic TP DAILY [facility] Last Admin: 02/22/19 11:48 Dose: 1 applic Lisinopril (Prinivil) 5 mg PO DAILY [facility] Last Admin: 02/22/19 10:24 Dose: 5 mg Metoprolol Succinate (Toprol Xl -) 25 mg PO DAILY [facility] Last Admin: 02/22/19 10:24 Dose: 25 mg Nitroglycerin (Nitrostat -) 0.4 mg SL Q5M PRN PRN Reason: FOR CHEST PAIN Pantoprazole Sodium (Protonix -) 40 mg PO DAILY [facility] Last Admin: 02/22/19 10:24 Dose: 40 mg - Objective Vital Signs: Vital Signs Temperature 98.1 F 02/22/19 08:24 Pulse Rate 54 L 02/22/19 08:24 Respiratory Rate 18 02/22/19 08:24 Blood Pressure 136/51 L 02/22/19 08:24 O2 Sat by Pulse Oximetry (%) 95 02/22/19 08:47 Constitutional: Yes: No Distress, Calm Neck: Yes: Supple Cardiovascular: Yes: Regular Rate and Rhythm Respiratory: Yes: CTA Bilaterally Gastrointestinal: Yes: Normal Bowel Sounds, Soft Integumentary: Yes: WNL Neurological: Yes: Alert Labs: CBC, BMP 02/22/19 05:40 02/22/19 05:40 INR, PTT INR 1.61 (0.83-1.09) H 02/20/19 05:30 Microbiology 02/19/19 19:00 Urine - Urine Clean Catch Urine Culture - Final Escherichia Coli 02/19/19 20:50 Blood - Peripheral Venous Blood Culture - Preliminary NO GROWTH OBTAINED AFTER 48 HOURS, INCUBATION TO CONTINUE FOR 3 DAYS. 02/19/19 20:52 Blood - Peripheral Venous Blood Culture - Preliminary NO GROWTH OBTAINED AFTER 48 HOURS, INCUBATION TO CONTINUE FOR 3 DAYS. - ....Imaging Chest X-ray: Report Reviewed Assessment/Plan UTI ?PNA Pancytopenia DM CAD dementia -- Tmax 99F, afebrile today -- Urine cx : pansensitive E. coli, continue Augmentin -- blood cultures neg --Pt without respiratory distress, or noted cough currently monitor cbc vitals currently stable
[2019-02-22] MEDS ORDERED: POTASSIUM CHLORIDE ORAL LIQUID 20 MEQ/15 ML PO ONE (19:00)
[2019-02-23 06:56] LABS: ALBUMIN 1.9 g/dl (3.4-5.0); ALK PHOS 55 U/L (45-117); ANION GAP 5 MMOL/L (8-16); BILIRUBIN,TOTAL 1.1 mg/dL (0.2-1); BLOOD UREA NITROGEN 8 mg/dL (7-18); CHLORIDE 107 mmol/L (98-107); CO2 29 mmol/L (21-32); CREATININE 0.8 mg/dL (0.55-1.3); GLUCOSE,RANDOM 74 mg/dL (74-106); POTASSIUM 3.3 mmol/L (3.5-5.1); SGOT/AST 94 U/L (15-37); SGPT/ALT 39 U/L (13-61); SODIUM 141 mmol/L (136-145); TOT PROT 4.6 g/dl (6.4-8.2)
[2019-02-23 07:45] LABS: BASO % 0.4 % (0-2.0); EOS % 0.5 % (0-4.5); HEMOGLOBIN 9.2 GM/dL (10.7-15.3); LYMPH % 45.7 % (8-40); MCH 22.6 pg (25.7-33.7); MCHC 31.7 g/dl (32.0-36.0); MEAN CELL VOLUME 71.4 fl (80-96); MEAN PLT VOLUME 10.2 fl (7.5-11.1); MONO % 9.7 % (3.8-10.2); NEUT % 43.7 % (42.8-82.8); PLATELET COUNT 63 K/MM3 (134-434); RBC 4.06 M/mm3 (3.60-5.2); WHITE BLOOD COUNT 2.9 K/mm3 (4.0-10.0)
[2019-02-23] MEDS ORDERED: POTASSIUM CHLORIDE TABS 20 MEQ TABLET.ER (FP) PO ONE (09:00)
[2019-02-23] MEDS: PANTOPRAZOLE 40 MG TABLET (FP) PO SCH (09:22)
[2019-02-23] MEDS: metoPROLOL SUCCINATE 25 MG TAB.SR.24H (FP) PO SCH (09:22)
[2019-02-23] MEDS: AMOX TR/POT CLAV 500MG/125MG TABLETS (FP) PO SCH (09:22)
[2019-02-23] MEDS: LISINOPRIL 5 MG TABLET (FP) PO SCH (09:22)
[2019-02-23] MEDS: DONEPEZIL HCL 5 MG TABLET (FP) PO SCH (09:23)
[2019-02-23] MEDS: KETOCONOZOLE 2% TOPICAL CREAM 15 GM TUBE TP SCH (09:35)
--- NOTE | 2019-02-23 10:32 | PN ---
Progress Note, THREAD DRESSER - Note Progress Note: Selected Entries 02/22/19 02/22/19 02/22/19 03:58 08:24 11:34 Breakfast 75% Lunch Supper Temperature 99 F 98.1 F 02/22/19 02/22/19 02/22/19 12:06 14:10 17:55 Breakfast Lunch 75% Supper 75% Temperature 98.3 F 98.0 F 02/22/19 02/23/19 22:00 05:52 Breakfast Lunch Supper Temperature 98.9 F 99.7 F H Laboratory Tests 02/23/19 05:30 WBC 2.9 L On reg diet/thin liquids. Suggest chopped today due to ill fitting dentures.
[2019-02-23 12:12] LABS: ANISOCYTOSIS 1+; MACROCYTOSIS 0; PLATELET ESTIMATE DECREASED
[2019-02-23 12:40] LABS: RETICULOCYTES 1.41 % (0.5-1.5)
--- NOTE | 2019-02-23 13:09 | PN ---
Progress Note, Physician - Current Medication List Current Medications: Active Medications Amoxicillin/Clavulanate Potassium (Augmentin - 500mg Tablet) 1 tab PO BID@0800, 1730 [facility] Stop: 02/26/19 08:01 Donepezil HCl (Aricept -) 5 mg PO DAILY [facility] Last Admin: 02/23/19 09:23 Dose: 5 mg Ketoconazole (Nizoral 2% Cream -) 1 applic TP DAILY [facility] Last Admin: 02/23/19 09:35 Dose: 1 applic Lisinopril (Prinivil) 5 mg PO DAILY [facility] Last Admin: 02/23/19 09:22 Dose: 5 mg Metoprolol Succinate (Toprol Xl -) 25 mg PO DAILY [facility] Last Admin: 02/23/19 09:22 Dose: 25 mg Pantoprazole Sodium (Protonix -) 40 mg PO DAILY [facility] Last Admin: 02/23/19 09:22 Dose: 40 mg - Objective Vital Signs: Vital Signs Temperature 98.1 F 02/23/19 10:00 Pulse Rate 64 02/23/19 10:00 Respiratory Rate 22 H 02/23/19 10:00 Blood Pressure 135/60 02/23/19 10:00 O2 Sat by Pulse Oximetry (%) 92 L 02/23/19 09:00 Labs: CBC, BMP 02/23/19 05:30 02/23/19 05:30 INR, PTT INR 1.61 (0.83-1.09) H 02/20/19 05:30
--- NOTE | 2019-02-23 14:08 | CONSULT ---
Consultation: REQUESTING PROVIDER: CONSULT REQUEST: We have been asked to medically evaluate this patient for heme/ onc HISTORY OF PRESENT ILLNESS: 83 y/o F w/PMH of HTN and alzheimers presented to the ER from [place] for sudden onset weakness and was found to have a UTI. Pt is a poor historian due to dementia but is AAOX2 (person and place). She denies any complaints and is unsure of why she is in the hospital and cannot recall events leading up to hospitalization. Heme consulted for pancytopenia. Pt initially came in with Hgb of 9.2 which dropped to 7.7, and was transfused. Hgb has been stable since. PMH: HTN, alzheimers PSH: Unable to obtain due to dementia SH: Unable to obtain due to dementia FH: Unable to obtain due to dementia Allergies: NKDA from notes REVIEW OF SYSTEMS: Unable to obtain due to dementia PHYSICAL EXAMINATION Vital Signs - 24 hr 02/22/19 02/22/19 02/22/19 14:10 17:55 20:01 Temperature 98.3 F 98.0 F Pulse Rate 60 57 L Respiratory 18 18 18 Rate Blood Pressure 126/60 134/55 L O2 Sat by Pulse 95 Oximetry (%) 02/22/19 02/23/19 02/23/19 22:00 05:52 09:00 Temperature 98.9 F 99.7 F H Pulse Rate 65 70 Respiratory 18 18 22 H Rate Blood Pressure 128/49 L 139/44 L O2 Sat by Pulse 92 L Oximetry (%) 02/23/19 10:00 Temperature 98.1 F Pulse Rate 64 Respiratory 22 H Rate Blood Pressure 135/60 O2 Sat by Pulse Oximetry (%) GENERAL: Awake, alert, and oriented x2 (person and place) EYES: extraocular movements intact, sclera anicteric EARS, NOSE, THROAT: Ears normal, nares patent LUNGS: Coarse breath sounds. Expiratory wheezing in L lung HEART: Regular rate and rhythm, normal S1 and S2 ABDOMEN: Soft, nontender, not distended, normoactive bowel sounds LOWER EXTREMITIES: warm, well-perfused. No peripheral edema. NEUROLOGICAL: Dementia PSYCHIATRIC: Dementia SKIN: Warm, dry Laboratory Results - last 24 hr 02/20/19 02/23/19 02/23/19 09:25 05:30 05:30 WBC 2.9 L RBC 4.06 Hgb 9.2 L Hct 29.0 L MCV 71.4 L MCH 22.6 L MCHC 31.7 L RDW 21.0 H Plt Count 63 L MPV 10.2 Absolute Neuts (auto) 1.3 L Neutrophils % 43.7 Lymphocytes % 45.7 H Monocytes % 9.7 Eosinophils % 0.5 Basophils % 0.4 Nucleated RBC % 0 Hypochromia 1+ Platelet Estimate Decreased Platelet Comment No clumping noted Polychromasia 1+ Poikilocytosis 1+ Anisocytosis 1+ Microcytosis 1+ Macrocytosis 0 Retic Count 1.41 Sodium 141 Potassium 3.3 L Chloride 107 Carbon Dioxide 29 Anion Gap 5 L BUN 8 Creatinine 0.8 Creat Clearance w eGFR 68.34 Random Glucose 74 Calcium 7.0 L Total Bilirubin 1.1 H AST 94 H ALT 39 Alkaline Phosphatase 55 Total Protein 4.6 L Albumin 1.9 L Blood Type B POSITIVE Antibody Screen Negative Crossmatch See Detail Active Medications Generic Name Dose Route Start Last Admin Trade Name Freq PRN Reason Stop Dose Admin Amoxicillin/Clavulanate Potassium 1 tab 02/23/19 17:30 Augmentin - 500mg Tablet PO 02/26/19 08:01 BID@0800,1730 [facility] Donepezil HCl 5 mg 02/21/19 10:00 02/23/19 09:23 Aricept - PO 5 mg DAILY [facility] Administration Ketoconazole 1 applic 02/20/19 10:09 02/23/19 09:35 Nizoral 2% Cream - TP 1 applic DAILY [facility] Administration Lisinopril 5 mg 02/20/19 10:00 02/23/19 09:22 Prinivil PO 5 mg DAILY [facility] Administration Metoprolol Succinate 25 mg 02/20/19 10:00 02/23/19 09:22 Toprol Xl - PO 25 mg DAILY [facility] Administration Pantoprazole Sodium 40 mg 02/20/19 10:00 02/23/19 09:22 Protonix - PO 40 mg DAILY [facility] Administration ASSESSMENT/PLAN: 83 y/o F w/PMH of HTN and alzheimers presented to the ER from [place] for sudden onset weakness and was found to have a UTI. Heme consulted for pancytopenia -Pancytopenia -B12 levels not low. Will also check folate. Iron studies. -Liver/Spleen U/S -Repeat UCx -May be secondary to chronic disease vs infection vs drug cause (Augmentin has a/e of leukopenia and thrombocytopenia) -Anemia stable s/p 1 PRBC, continue to monitor Hgb Dispo: We will continue to follow the patient. Thank you for this consultative opportunity. Visit type - Emergency Visit Emergency Visit: Yes ED Registration Date: 02/19/19 Care time: The patient presented to the Emergency Department on the above date and was hospitalized for further evaluation of their emergent condition. - New Patient This patient is new to me today: Yes Date on this admission: 02/23/19 - Critical Care Critical Care patient: No
--- NOTE | 2019-02-23 14:37 | DS ---
Physical Examination Vital Signs: Vital Signs Temperature 98.1 F 02/23/19 10:00 Pulse Rate 64 02/23/19 10:00 Respiratory Rate 22 H 02/23/19 10:00 Blood Pressure 135/60 02/23/19 10:00 O2 Sat by Pulse Oximetry (%) 92 L 02/23/19 09:00 Constitutional: Yes: Well Nourished Eyes: Yes: WNL HENT: Yes: WNL Neck: Yes: WNL Cardiovascular: Yes: WNL Respiratory: Yes: WNL Gastrointestinal: Yes: WNL ...Rectal Exam: Yes: Deferred Renal/: Yes: WNL Breast(s): Yes: WNL Musculoskeletal: Yes: WNL Extremities: Yes: WNL Edema: No Peripheral Pulses: Left Doralis Pedis: 0 Integumentary: Yes: WNL Neurological: Yes: Confusion, Unsteady Gait Psychiatric: Yes: Other (oms) Labs: CBC, BMP 02/23/19 05:30 02/23/19 05:30 Discharge Summary Reason For Visit: ELAVATED TROPONIN LEVEL,MICROCYTIC ANEMIA,WEAKNESS Current Active Problems Elevated troponin (Acute) Microcytic anemia (Acute) PNA (pneumonia) (Acute) Weakness (Acute) Condition: Guarded - Instructions Disposition: HOME - Home Medications Comprehensive Discharge Medication List: Ambulatory Orders Unobtainable 02/19/19
[2019-02-23 15:48] VITALS: BP 148/76; PULSE 78; TEMP 97.9
[2019-02-23] MEDS ORDERED: AMOX TR/POT CLAV 500MG/125MG TABLETS (FP) PO SCH (17:30)
== END 2019-02-23 16:25 | disposition home or self-care (01) | DRG 689 ==
LOC: JER 15:45 → OBSVTOIN 17:39 → JERBED 17:39 → J4W 23:19
PROVIDERS: ADMIT Family Medicine; ATTEND Family Medicine
DX: N39.0 Urinary tract infection, site not specified (principal); G93.41 Metabolic encephalopathy; J18.9 Pneumonia, unspecified organism; D61.818 Other pancytopenia; E87.6 Hypokalemia; I24.8 Other forms of acute ischemic heart disease; I10 Essential (primary) hypertension; G30.9 Alzheimer's disease, unspecified; F02.80 Dementia in other diseases classified elsewhere, unspecified severity, without behavioral disturbance, psychotic disturbance, mood disturbance, and anxiety; I25.10 Atherosclerotic heart disease of native coronary artery without angina pectoris; J98.11 Atelectasis; K21.9 Gastro-esophageal reflux disease without esophagitis; B96.20 Unspecified Escherichia coli [E. coli] as the cause of diseases classified elsewhere; R26.81 Unsteadiness on feet; Z95.1 Presence of aortocoronary bypass graft
CPT/HCPCS: 36415; 36430; 36511; 70450-TC; 71046-TC-FY; 71250-TC; 80048; 80053; 81003; 82272; 82550; 82553; 82607; 83735; 83880; 84443; 84484; 85025; 85027; 85044; 85610; 85730; 86593; 86850; 86900; 86901; 86922; 87040; 87086; 87186; 93005; 93010; 93306-TC; 93880-TC; 97116-GP; 99283-25; J1644; P9038; P9058